=== PATIENT | male | born 1990 | race Caucasian/White ===

== ENCOUNTER 2018-09-23 01:22 | Emergency (ER) | payer SELFPAY ==
[2018-09-23] MEDS ORDERED: VANCOMYCIN HCL INJ 1000 MG VIAL IV ONE (04:38)
[2018-09-23] MEDS ORDERED: CEFTRIAXONE 1 GM/D5W RTU 1 GM/50 ML RTUPB IV ONE (04:38)
[2018-09-23] MEDS ORDERED: LIDOCAINE 1%/EPINEPHRINE INJ 20 ML VIAL INJ ONE (04:38)
[2018-09-23] MEDS ORDERED: HYDROMORPHONE HCL INJ/PF 2 MG/ML AMPULE IV ONE (04:39)
--- NOTE | 2018-09-23 05:33 | ER Document Report ---
ED General - General Chief Complaint: Abscess Stated Complaint: SPIDER BITE Time Seen by Provider: 09/23/18 04:31 Notes: Patient is a 28-year-old male presents with complaint of a abscess in the right antecubital area. Fever started a few days ago is just a small red area. This refers her to school and tight and then opened up on its own. He said pus did come out. No fevers. No vomiting. No history of IV drug use. 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 He says he has had MRSA once before when he had an abscess on his chin. He denies any other complaints at this time. TRAVEL OUTSIDE OF THE [place] IN LAST 30 DAYS: No - Related Data Allergies/Adverse Reactions: No Known Allergies Allergy (Verified 03/17/14 13:45) Past Medical History - Social History Smoking Status: Unknown if Ever Smoked Frequency of alcohol use: None Drug Abuse: None Family History: Reviewed & Not Pertinent Past Surgical History: Reports: Hx Orthopedic Surgery - right leg - Immunizations Hx Diphtheria, Pertussis, Tetanus Vaccination: Yes Review of Systems - Review of Systems Notes: My Normal Review Basic REVIEW OF SYSTEMS: CONSTITUTIONAL : Denies fever, chills, or sweats. Denies recent illness. GASTROINTESTINAL: Denies nausea, vomiting MUSCULOSKELETAL: Denies neck or back pain or joint pain or swelling. SKIN: Abscess over right antecubital area. NEUROLOGICAL: Denies sensory or motor loss. ALL OTHER SYSTEMS REVIEWED AND NEGATIVE. Physical Exam - Vital signs Vitals: Temp Pulse Resp BP Pulse Ox 98.8 F 87 15 131/84 H 99 09/23/18 01:54 09/23/18 01:54 09/23/18 01:54 09/23/18 01:54 09/23/18 01:54 - Notes Notes: General Appearance: Well nourished, alert, cooperative, no acute distress, moderate obvious discomfort. Vitals: reviewed, See vital signs table. Eyes: PERRL Mouth: No decreasd moisture Extremities: strength 5/5 in all extremities, good pulses in all extremities, patient has an open wound over the right antecubital area from an abscess ruptured and opened on its own. There is a small core of what appears to be some purulent material as well as likely some necrotic fatty tissue. There is some surrounding erythema. Surrounding erythema extends approximately 4 cm away from the wound. No crepitus to palpation. Wound is appropriately tender but not out of proportion to exam. Skin: warm, dry, appropriate color, no rash Neuro: speech clear, oriented x 3, normal affect, responds appropriately to questions. Distal sensation intact in right upper extremity. Course - Re-evaluation Re-evalutation: 09/23/18 05:45 Abscess was already open and therefore I removed purulent drainage that was left in the wound as well as debrided some of the necrotic skin. I gave him a dose of vancomycin and Rocephin. I encouraged him to change dressing 1-2 times a day. Encouraged to gently wash with soap and water. I will prescribe him doxycycline. He says he has had this antibiotic before and did not have any first reaction to it. I am encouraged him to stay out of sunlight or to wear sunscreen when on this antibiotic. I encouraged him return to ER immediately if he has spreading redness, increasing swelling, or if he feels that he is worsening in any way. Patient agrees with plan will be discharged home. Dictation of this chart was performed using voice recognition software; therefore, there may be some unintended grammatical errors. - Vital Signs Vital signs: Temp Pulse Resp BP Pulse Ox 98.8 F 87 15 131/84 H 99 09/23/18 01:54 09/23/18 01:54 09/23/18 01:54 09/23/18 01:54 09/23/18 01:54 Discharge - Discharge Clinical Impression: Abscess Condition: Good Disposition: HOME, SELF-CARE Additional Instructions: POST INCISION AND DRAINAGE: You have had an incision made to allow drainage of an abscess. The incision must remain open so that pus and debris can drain from the wound. If the abscess cavity is large, packing is placed. This keeps the tissues from collapsing and trapping pus inside, while the body shrinks the cavity. The packing may need to be replaced every day or two. The physician will instruct y ou on the packing. Keep a bulky dressing over the area. Replace it if it becomes saturated with blood or pus. Do not disturb the packing (if present). You may shower and cleanse the area with gentle soap and warm water two or three times a day. Local warmth may be soothing, and may promote faster healing. Return if you develop high fever or chills, or if you note spreading rednes s, increasing swelling, or increasing tenderness. DOXYCYCLINE: Doxycycline (Vibramycin, Doryx) is an antibiotic of the tetracycline family. This type of drug is useful for infections of the respiratory tract and genital tract, and is sometimes used for intestinal infections. Unlike most tetracyclines, doxycycline can be taken with food. It is longer acting, and (usually) less prone to side effects than regular tetracycline. Tetracycline antibiotics can stain immature teeth and SHOULD NOT BE TAKEN BY CHILDREN, NURSING MOTHERS, OR WOMEN. Tetracyclines can make you more prone to sunburn. Abdominal cramping, nausea, and diarrhea are occasional side effects. Women may experience vaginal yeast infections. Call the doctor at once if you develop hives, itching, shortness of breath, or lightheadedness. FOLLOW-UP CARE: Most simple abscesses will not require a follow up visit. If you had packing placed in the abscess, remove it as instructed by the physician. If you have been referred to a physician for follow-up care, call the physicians office for an appointment as you were instructed or within the next two days. If you experience worsening or a significant change in your symptoms, return to the Emergency Department at any time for re-evaluation. Please return take the antibiotic as prescribed. please follow up with a doctor on Tuesday for reevaluation. You are welcome to return to the ER for reevaluation if you do not have a primary care doctor. Please gently clean with soap and water and dry and than cover with a nonstick clean bandage 1-2 times a day. please return to the ER immediately if you develop spreading redness, fevers, increasing swelling or feel that you are worsening in any way. Prescriptions: Doxycycline Hyclate 100 mg PO BID #14 capsule Forms: Return to Work
[2018-09-23 06:27] VITALS: BP 122/79
== END 2018-09-23 06:27 | disposition home or self-care (01) ==
LOC: ER 01:22
DX: L02.511 Cutaneous abscess of right hand (principal)
CPT/HCPCS: 99283; 96375; 96365; 96367; 87070; 87205; 87075; 87077; 87186; 10060; J3490; J1170; J3370; J0696